=== PATIENT | male | born 1960 | race Caucasian/White ===

== ENCOUNTER 2016-09-14 11:03 | Emergency (ER) | payer MEDICAID, OTHER ==
[~2016-09-14] VITALS: Ht 162.6 cm; Wt 78.1 kg
[2016-09-14 11:06] VITALS: Ht 162.6 cm; Wt 78.1 kg
[2016-09-14] MEDS ORDERED: IBUPROFEN 600 MG TAB PO ONE (13:00)
[2016-09-14] MEDS ORDERED: DIPHTH/TET/ACEL PERTUSS (ADULT) 0.5 ML VIAL IM* ONE (13:00)
--- NOTE | 2016-09-14 13:45 | RADRPT ---
PROCEDURE: XR Left Foot. CLINICAL INDICATION: Puncture wound with a nail. Left foot pain. TECHNIQUE: Three views. Frontal, lateral, and oblique. COMPARISON: None. FINDINGS: There is no fracture or dislocation. The soft tissues are normal. Articular surfaces are intact. There is no lytic or blastic lesion. There is no radiopaque foreign body. IMPRESSION: 1. Normal images of the left foot. 2. No radiopaque foreign body. RPTAT: QQ .Juan Miguel Cobian MD, Date Time Electronically viewed and signed by .Juan Miguel Cobian MD, on 09/14/2016 13:45 .R/
[2016-09-14] MEDS ORDERED: CIPR500T4 PO (13:57)
[2016-09-14] MEDS ORDERED: IBUP-1542 PO (13:57)
--- NOTE | 2016-09-14 13:57 | ERD ---
ER Documentation Chief Complaint Date/Time DATE: 09/14/16 Chief Complaint Puncture wound left foot HPI The patient is a 55-year-old male who presents to the Emergency Department with complaint of pain s/p puncture wound to the left foot. 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 He removed the nail and boot, and irrigate the wound. Since , he has continued to experience a throbbing pain to the plantar aspect of the foot, particularly with ambulation. He denies numbness, weakness or tinging of the extremity. He rates his current pain as 4/10, but has not yet taken any medication for pain relief. Tetanus status is not up-to-date. ROS All systems reviewed and are negative except as per history of present illness. Medications Home Meds Active Scripts Ibuprofen* (Motrin*) 600 Mg Tab, 600 MG PO Q6, #30 TAB Prov:MARTY MIRANDA PA-C 09/14/16 Ciprofloxacin Hcl* (Ciprofloxacin Hcl*) 500 Mg Tablet, 500 MG PO BID for 7 Days , TAB Prov:MARTY MIRANDA PA-C 09/14/16 Allergies Allergies: Coded Allergies: Penicillins (Verified Allergy, Intermediate, rash, 09/02/13) PMhx/Soc History of Surgery: Yes (appendectomy) Anesthesia Reaction: No Hx Neurological Disorder: No Hx Respiratory Disorders: No Hx Cardiac Disorders: No Hx Psychiatric Problems: No Hx Miscellaneous Medical Probl: No Hx Alcohol Use: No Hx Substance Use: No Hx Tobacco Use: No Smoking Status: Never smoker Physical Exam Vitals Vital Signs Date Time Temp Pulse Resp B/P Pulse Ox O2 Delivery O2 Flow Rate FiO2 09/14/16 14:08 98.1 82 18 122/66 99 Room Air 09/14/16 11:06 98.1 78 18 115/62 99 Physical Exam Const: Well-developed, well-nourished, in no acute distress. Head: Atraumatic Eyes: Normal Conjunctiva ENT: Moist mucous membranes. Neck: Supple. Resp: Normal expiratory effort. Clear to auscultation bilaterally. Cardio: Normal peripheral perfusion, no edema. Skin: Healed/closed puncture wound to the plantar aspect of the left foot. No surrounding erythema, warmth, tenderness, fluctuance, drainage or bleeding. Ext: No clubbing, cyanosis, or edema. Moving all extremities. DP and PT pulses 2+. Neur: Awake and alert. Psych: Cooperative. Results 24 hrs Current Medications Medications (Trade) Dose Ordered Sig/Sudhir Route PRN Reason Start Time Stop Time Status Last Admin Dose Admin Diphtheria/ Tetanus/Acell Pertussis (Adacel) 0.5 ml ONCE ONCE IM* 09/14/16 13:00 09/14/16 13:01 DC 09/14/16 12:57 Ibuprofen (Motrin) 600 mg ONCE ONCE PO 09/14/16 13:00 09/14/16 13:01 DC 09/14/16 12:56 Procedures/MDM DIAGNOSTIC TESTS AND INTERPRETATION: PROCEDURE: XR Left Foot. CLINICAL INDICATION: Puncture wound with a nail. Left foot pain. TECHNIQUE: Three views. Frontal, lateral, and oblique. COMPARISON: None. FINDINGS:There is no fracture or dislocation.The soft tissues are normal.Articular surfaces are intact.There is no lytic or blastic lesion.There is no radiopaque foreign body. IMPRESSION: 1. Normal images of the left foot. 2. No radiopaque foreign body. .Juan Miguel Cobian MD, MD Date Time Electronically viewed and signed by .Juan Miguel Cobian MD, MD on 09/14/2016 13:45 MEDICAL DECISION MAKING: This is a 55-year-old male presenting to the emergency department with a puncture wound to the plantar aspect of the left foot after a nail pierced through the sole of his boot while at work. On physical examination the patient had a healed/closed puncture wound to the left foot. Otherwise, no evidence of cellulitis, soft tissue abscess, septic arthritis, tenosynovitis, necrotizing soft tissue infection or osteomyelitis. X-ray performed revealed no avulsion injury or fracture. No evidence of retained foreign body. Patient is immunocompetent, with no history of diabetes mellitus , neuropathy or vascular disease. Tetanus status is unknown and was therefore updated. At this time, the patient is in stable condition and therefore can be discharged home with a prescription for Ciprofloxacin and Ibuprofen and given strict return precautions for signs of deteriorating or worsening condition. The patient is advised to follow up with a primary care provider within 2-3 days for re-evaluation and further management, or return to the ER sooner for any new or worsening symptoms. I shared my medical decision making and plan with the patient at length and in great detail, and the patient verbally understands and agrees with the plan for further observation and care as an outpatient. At the time of discharge, all questions were answered. Departure Diagnosis: Primary Impression: Puncture wound of left foot Encounter type: initial encounter Qualified Code: S91.332A - Puncture wound of left foot, initial encounter Condition: Stable Patient Instructions: Puncture Wound, Foot Additional Instructions: Llame al doctor MAANA y mario sree HARMAN PARA DENTRO DE 2-3 RUFF.Dgale a la secretaria que nosotros le instruimos hacer esta harman.Avise o llame si herrera condicin se empeora antes de la harman. Regresa aqui si peor o no mejor. MARTY MIRANDA PA-C Sep 14, 2016 13:57
[2016-09-14 14:08] VITALS: BP 122/66; PULSE 82; RESP 18; TEMP 98.1
== END 2016-09-14 14:08 | disposition home or self-care (01) ==
LOC: FTE 11:03
DX: S91.332A Puncture wound without foreign body, left foot, initial encounter (principal); W45.0XXA Nail entering through skin, initial encounter; Y92.69 Other specified industrial and construction area as the place of occurrence of the external cause; Z23 Encounter for immunization
CPT/HCPCS: 73630; 90471; 90715; Z7502; Z7610